=== PATIENT | male | born 1995 | race Caucasian/White ===

== ENCOUNTER 2017-01-30 15:53 | Inpatient (IN) | payer OTHER ==
[~2017-01-30] VITALS: Ht 185.4 cm; Wt 100.7 kg
--- NOTE | ~2017-01-30 | HP ---
Unit #: [id number] #: [id number] Patient: ZORAIDA OSUNA [id number] [place] [address] [id number] MR#: [id number] NAME: ZORAIDA OSUNA ROOM: P176 Age: 21 Sex: M Admission Date: 01/30/2017 : 1995 Attending Physician: Kevin Arroyo M.D. Admitting Physician: Kevin Arroyo M.D. Primary Care Physician: Primary Care Physician No HISTORY AND PHYSICAL HISTORY OF PRESENT ILLNESS The patient is a 21-year-old male admitted to [facility] on 01/30/2017 for suicidal ideations and to detox from heroin. PAST MEDICAL HISTORY Patient denies. PAST SURGICAL HISTORY Patient denies. ALLERGIES No known drug allergies. SOCIAL HISTORY He recently lost his job. He is homeless. Drinks 1 to 2 sips of alcohol per day and uses 1 gram of heroin per day. FAMILY HISTORY Noncontributory. REVIEW OF SYSTEMS CONSTITUTIONAL: No fever or chills. HEENT: Denies any sore throat, ear pain or runny nose. CARDIOVASCULAR: Denies chest pain, irregular heart rhythm or palpitations. CHEST: Denies shortness of breath or cough. No hemoptysis. GASTROINTESTINAL: Denies nausea, vomiting, diarrhea or chronic constipation. ENDOCRINE: Denies history of increased thirst or urination. No recent significant weight loss or gain. GENITOURINARY: Denies dysuria, frequency, or hematuria. SKIN: Denies any rashes. HEMATOLOGIC: Denies history of increased bleeding or bruising. MUSCULOSKELETAL: Denies any hot, swollen joints. No generalized muscle pain. NEUROLOGIC: Denies problems with vision or speech. No frequent, severe headaches. No numbness, tingling or weakness in any extremities. Denies loss of bladder or bowel control. CURRENT MEDICATIONS Celexa. PHYSICAL EXAMINATION GENERAL: He is awake, alert, oriented, in no acute distress. Unit #: [id number] #: [id number] Patient: ZORAIDA OSUNA VITAL SIGNS: Temperature 98.7, heart rate 86, respirations 18, blood pressure 110/69. HEIGHT: 6 feet 1. WEIGHT: 222 pounds. SKIN: Warm and dry without rash or lesion. HEENT: Normocephalic. TMs not viewed. Oral and nasal passages clear. Conjunctivae clear. PERRLA. EOMs intact. NECK: Supple without lymphadenopathy or thyromegaly. HEART: Regular rate and rhythm without murmur. LUNGS: Clear. ABDOMEN: Soft, nontender. : Not done. EXTREMITIES: No evidence of cyanosis, clubbing or edema. Moves all without focal deficit. NEUROLOGICAL: Grossly within normal limits. Cranial Nerves: II: Visual eid are intact. III, IV AND : Extraocular movements are intact. Pupils are equal, round and reactive to light. V: Facial sensation is grossly normal. VII: Facial movements and expression are normal. VIII: Auditory acuity grossly intact. IX, X: Uvula is midline. Phonation is normal. XI: Patient shrugs shoulders and turns head normally. XII: Tongue protrudes in the midline. Sensory and Motor Function: Sensory and motor sensation is grossly normal. Motor: moves all extremities well. Coordination: Gait is normal. Deep Tendon Reflexes: Intact. IMPRESSION 1. Psychiatric admission. 2. Heroin dependence. 3. Alcohol abuse. RECOMMENDATIONS PSYCHIATRIC: Per psychiatrist. MEDICAL: No contraindication to participate in facility's activities. MEDICAL PROGNOSIS Good. MEDICAL CONDITION Stable. Dictated by... Maximo Rosario/hay TD: 01/31/2017 14:22 JOB #: [id number] Unit #: [id number] #: [id number] Patient: ZORAIDA OSUNA HISTORY AND PHYSICAL Page 1 of 1 X NANO SÁNCHEZ APRN X HISTORY AND PHYSICAL
--- NOTE | ~2017-01-30 | PA ---
Unit #: [id number] #: [id number] Patient: ZORAIDA OSUNA [id number] [facility] [address] [place] [address] [id number] MR#: [id number] NAME: ZORAIDA OSUNA ROOM: P176 Age: 21 Sex: M Admission Date: 01/30/2017 : 1995 Date of Assessment: 01/31/2017 Attending Physician: Kevin Arroyo M.D. Admitting Physician: Kevin Arroyo M.D. Primary Care Physician: Primary Care Physician No PSYCHIATRIC ASSESSMENT INFORMANTS The patient, partially reliable; OLOP, reliable. CHIEF COMPLAINT Suicidal ideation and drug abuse. HISTORY OF PRESENT ILLNESS Mr. Osuna is a 21-year-old man appearing his stated age. This is his first time presenting to this facility and he comes in with reports of suicidal ideation and thoughts of killing himself, which he reports has been present since 01/14/2016. The patient reports that he is also using heroin 1 g IV daily as well as alcohol, one-fifth of vodka daily as well. The patient reports that he has a plan to overdose on his medications if not hospitalized and kept safe from harming himself at this time. The patient reports that he had been living most recently in sober living from 16 of this month and was detox program at the [facility] in [place]. He at that time told them that he was suicidal and his parents pick him up and take him for an evaluation regarding that suicidal ideation. PAST PSYCHIATRIC HISTORY The patient reports multiple inpatient and outpatient hospitalizations for substance abuse issues and suicidal ideation. FAMILY PSYCHIATRIC HISTORY The patient reports that his aunt is currently hospitalized in [facility] for psychiatric issues and he has an uncle who completed suicide approximately 6 months ago. PAST MEDICAL HISTORY The patient reports none. MEDICATIONS The patient will be continued on his current medication of Celexa 20 mg daily. SUBSTANCE ABUSE HISTORY The patient reports that he has recently been drinking this heavily for approximately 1 month and has been using IV heroin for approximately 1 month at this time. MENTAL STATUS EXAMINATION Mr. Osuna is a 21-year-old male, mildly disheveled, casually dressed, who Unit #: [id number] #: [id number] Patient: ZORAIDA OSUNA appears his stated age. He was tremulous upon examination. His mood was depressed with a decreased range of affect. He was alert and fully oriented with no evidence of confusion or psychosis. He reported and endorsed suicidal ideation with a plan to overdose at this time and states that intrusive thoughts of suicide do occur on and off throughout the day every day. He denied homicidal ideation. Insight and judgment appear limited at this time. Fund of knowledge and abstractions, fair. ASSETS AND LIABILITIES The patient is aware of local resources and presents voluntarily for treatment. Liabilities are frequent hospitalizations for chronic use of alcohol and heroin. ADMITTING DIAGNOSES AXIS I: Alcohol dependence with withdrawal, uncomplicated and heroin dependence with withdrawal, uncomplicated. AXIS II: Deferred. AXIS III: None acute. AXIS IV: AXIS V: PSYCHIATRIC PLAN The patient was admitted and placed on suicidal precautions and alcohol detox protocol as well as opioid detox protocol. His home medications will be restarted and the patient will be enrolled in dual diagnosis and programming. TREATMENT GOALS Establishment of sobriety, improvement in insight, and resolution of suicidal ideation. DISCHARGE PLAN Follow up with community substance abuse treatment resources of the patient's choice. ESTIMATED LENGTH OF STAY 5 days. Dictated by... Tabitha Del Rosario APRN for Oskar Velasco/nel TD: 02/02/2017 06:18 JOB #: [id number] Unit #: [id number] #: [id number] Patient: ZORAIDA OSUNA PSYCHIATRIC ASSESSMENT Page 1 of 1 X TABITHA DEL ROSARIO PSYCHIATRIC ASSESSMENT
--- NOTE | ~2017-01-30 | PN ---
Unit #: [id number] #: [id number] Patient: KJ OSUNA [id number] [facility] [address] [place] [address] [id number] MR#: [id number] NAME: KJ OSUNA ROOM: [facility] Age: 21 Sex: M Admission Date: 01/30/2017 : 1995 Attending Physician: Kevin Arroyo M.D. Admitting Physician: Kevin Arroyo M.D. Primary Care Physician: Primary Care Physician Fidelina BARILLAS PROGRESS NOTES DATE 02/02/2017 DISCUSSION Upon today's assessment, Mr. Osuna stated that he felt "okay" and that he still reported elevated levels of anxiety at this time and rates them a 10 out of 10 with 10 being the most severe. At this time, he stated that he felt like he could keep himself safe and would not harm himself so the one-to-one precautions were discontinued and he was placed in a VTS room at this time. Mr. Osuna stated that the p.r.n. for agitation that was added, Zyprexa Zydis, was effective in reducing his agitation. PLAN At this time, we will continue to monitor Mr. Kj Osuna for self-injurious behaviors and monitor him q. 15 minutes for safety as well as keeping him in a VTS room. Dictated by... ROSARIO Metz/hay TD: 02/05/2017 22:39 JOB #: [id number] [facility] NOTES Page 1 of 1 X REGINA DELR OSARIO PROGRESS NOTE
--- NOTE | ~2017-01-30 | PN ---
Unit #: [id number] #: [id number] Patient: ZORAIDA OSUNA [id number] [place] [address] [id number] I MR#: [id number] NAME: ZORAIDA OSUNA ROOM: 74 Age: 21 Sex: M Admission Date: 01/30/2017 : 1995 Attending Physician: Kevin Arroyo M.D. Admitting Physician: Kevin Arroyo M.D. Primary Care Physician: Primary Care Physician Fidelina [facility] PROGRESS NOTES DATE 02/01/[address] 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 He reports that he suffers from PTSD, and last evening had been suffering from nightmares, continues to suffer from nightmares from PTSD. He reports that these nightmares were so vivid in nature, "I could smell [place]." The patient was very anxious and described his anxiety and rated his anxiety as 10/10 with 10 being the most severe. He reported increased depression and as well as intrusive spots periodically of "you would be better off " and vague thoughts of wanting to kill himself via overdose. While on the unit, Mr. Osuna decided to start banging his head into the side of the wall and a nursing staff had to redirect this patient. He was ordered a p.r.n. for agitation which was Zyprexa Zydis 10 mg sublingual b.i.d. for agitation and he was placed on SIB precautions and a one-to-one at that time. We will continue to monitor Mr. Osuna for self-injurious behavior and suicidal ideations. Dictated by... ROSARIO Metz TD: 02/03/2017 05:11 JOB #: [id number] Unit #: [id number] #: [id number] Patient: ZORAIDA OSUNA [facility] NOTES Page 1 of 1 X REGINA DEL ROSARIO NOTE
[2017-01-31 10:56] LABS: BASOPHIL# 0.1 X10e3 (0-0.3); BASOPHIL% 0.8 % (0-2.5); EOSINOPHIL# 0.1 X10e3 (0-0.7); EOSINOPHIL% 1.6 % (0.0-7.0); HEMATOCRIT 46.4 % (38.0-50.0); HEMOGLOBIN 15.5 gm/dL (13.0-16.0); LYMPHOCYTE# 2.5 X10e3 (1.0-3.5); LYMPHOCYTE% 36.1 % (17.0-45.0); MEAN CELL VOLUME 92.1 FL (83-96); MEAN CORPUSCULAR HEMOGLOBIN 30.8 PG (28-34); MEAN CORPUSCULAR HGB CONC 33.4 g/dL (30-36); MEAN PLATELET VOLUME 7.1 FL (6.5-11.5); MONOCYTE# 0.6 X10e3 (0-1.0); MONOCYTE% 8.3 % (3.0-12.0); NEUTROPHIL# 3.6 X10e3 (1.5-7.1); NEUTROPHIL% 53.2 % (40-75); PLATELET COUNT 303 X10e3 (140-420); RED BLOOD COUNT 5.03 X10e (3.90-5.60); RED CELL DISTRIBUTION WIDTH 14.3 % (11.0-15.5); WHITE BLOOD COUNT 6.9 X10e3 (4.0-10.5)
[2017-01-31 11:03] LABS: DIFF IND NO
[2017-01-31 11:28] LABS: ALBUMIN SERUM 3.7 g/dL (3.5-5.0); ALKALINE PHOSPHATASE 70 U/L (32-92); ALT (SGPT) 18 U/L (10-40); AST (SGOT) 18 U/L (10-42); BLOOD UREA NITROGEN 11 mg/dL (9-23); CALCIUM SERUM 9.6 mg/dL (8.4-10.2); CARBON DIOXIDE 29 mmol/L (22-31); CHLORIDE 105 mmol/L (100-111); GLOM FILT RATE Estimated 106.4 mL/min (>60); GLUCOSE FASTING 91 mg/dL (70-110); PROTEIN TOTAL SERUM 6.6 g/dL (6.0-8.3); SODIUM 139 mmol/L (135-145)
[2017-01-31 11:30] LABS: BILIRUBIN,TOTAL <0.1 mg/dL (0.2-2.0)
[2017-02-01 12:42] LABS: URINE APPEARANCE TURBID; URINE BILIRUBIN NEG (NEG); URINE BLOOD NEG (NEG); URINE COLOR DK YELLOW; URINE GLUCOSE NEG (NEG); URINE KETONE NEG (NEG); URINE LEUKOCYTE ESTERASE NEG (NEG); URINE NITRATE NEG (NEG); URINE PROTEIN NEG (NEG); URINE SPECIFIC GRAVITY 1.023 (1.003-1.035)
[2017-02-01 13:11] LABS: AMPHETAMINE NEG (NEG); BARBITURATES NEG (NEG); BENZODIAZEPINES NEG (NEG); COCAINE NEG (NEG); MARIJUANA NEG (NEG); OPIATES NEG (NEG); TRICYCLIC ANTIDEPRESSANTS NEG (NEG); U METHADONE NEG (NEG)
[2017-02-05 07:42] LABS: HA AB IGM (HEPPAN) Nonreactive (()); HB CORE AB IGM (HEPPAN) Nonreactive (Nonreactive); HB S AG (HEPPAN) Nonreactive (Nonreactive); HEP C AB (HEPPAN) Nonreactive (Nonreactive); HEP C AB SIGNAL TO CUTOFF 0.01 ratio (<1.00)
== END 2017-02-04 12:25 | DRG 897 ==
LOC: P1E 18:26
PROVIDERS: Psychiatry & Neurology Psychiatry
PROC: HZ2ZZZZ Detoxification Services for Substance Abuse Treatment (ICD-10-PCS; principal; 2017-01-30)
DX: F10.230 Alcohol dependence with withdrawal, uncomplicated (principal); F11.23 Opioid dependence with withdrawal; R45.851 Suicidal ideations
CPT/HCPCS: 80053; 80074; 80307; 81003; 85025; 86592